=== PATIENT | male | born 1960 | race Caucasian/White ===

== ENCOUNTER 2023-10-13 10:06 | Outpatient (AMB) | payer BC, SELFPAY ==
--- NOTE | 2023-10-13 10:13 | AM.OFFWIN_ITS ---
Intake Vital Signs 10/13/23 10:27 Height 6 ft Weight 180 lb BMI 24.4 BP 136/68 Blood Pressure Location Rt brachial Position Sitting Pulse 75 Pulse Source Pulse Oximeter Temp 97.9 F Temp Source Oral Pulse Oximetry (%) 95 Oxygen Delivery Method Room Air Intake Visit Reasons: EP LT ear pain/crackling in both ears Intake Note: Pt is here today for Lt ear pain, started last night. Also pt states he had a cold a couple of wks ago. Allergies No Known Allergies Allergy (Verified 10/13/23 10:13) Do you need a note to return to daycare/school/sports/work: No HPI HPI Comments History of Present Illness Details This is a 62-year-old male with no stated past medical history presenting for evaluation of left ear pain and a crackling sensation his left ear that started last night. Patient denies having any fevers, chills, sore throat or lightheadedness. Patient states that his has been sick with sinusitis. Patient also reports tinnitus that he has had bilaterally for 2 weeks. [facility] Surgical History History of hernia repair Family History Mother No problems noted. Father Hypertension Diabetes Social History Alcohol intake: current Alcohol intake frequency: a few times a week Review of Systems Const All systems reviewed & are unremarkable except as noted in HPI and below Eyes Reports as per HPI ENT Reports otalgia (Left ear), Denies facial pain and Reports tinnitus Resp Reports no additional complaints Physical Exam Vital Signs: Last Vital Signs Temp 97.9 F 10/13/23 10:27 Pulse 75 10/13/23 10:27 BP 136/68 10/13/23 10:27 Pulse Ox 95 10/13/23 10:27 Oxygen Delivery Method Room Air 10/13/23 10:27 BMI result Body Mass Index 24.4 Const General: cooperative, healthy appearing, comfortable, no acute distress, well developed, alert and awake Nutritional Appearance: average body habitus Orientation/consciousness: patient oriented x3 Limitations: no limitations HEENT Head: Yes normal to inspection and Yes normocephalic Ears: hearing grossly normal bilaterally, external ears normal, TM's abnormal bilaterally (L. TM bulging, erythematous, mild fluid level; R. TM bulging, no erythema) and EAC's normal General nose exam: Normal external nose present Face and sinus: Yes normal facial exam and Yes sinuses nontender Mouth: Normal oral and palatal mucosa present Throat: Yes posterior oropharynx normal Eyes General: appearance normal, both eyes and all related structures Neck Lymphatic: no lymphadenopathy noted Neuro General: patient oriented x3 Psych Appearance: grossly normal Mental Status: mental status grossly normal Insight: Good insight present (Psych) Judgement: Good judgement present (Psych) Assessment & Plan Assessment & Plan (1) Left otitis media: Comment: Tinnitus discussed with patient; may consider hearing test for baseline. Code(s): H66.92 - Otitis media, unspecified, left ear Qualifiers: Otitis media type: unspecified Qualified Code(s): H66.92 - Otitis me jhonny, unspecified, left ear Plan: Amoxicillin t.i.d. x7 days. Ibuprofen or Tylenol as needed. Medications: New amoxicillin 500 mg PO TID 21 caps 0RF Coding Level of Care Code Est Pt Level 3 (93700) Diagnoses Left otitis media, unspecified otitis media type H66.92 Otitis media type: unspecified Time Spent (min) 20
[2023-10-13 10:27] VITALS: BP 136/68; PULSE 75; TEMP 36.6; O2SAT 95; BMI 24.4
== END 2023-10-13 10:55 | disposition home or self-care (01) ==
PROVIDERS: PCP Internal Medicine; Visit Provider Physician Assistant
DX: H66.92 Otitis media, unspecified, left ear (principal)
CPT/HCPCS: 99213

== ENCOUNTER 2024-03-26 15:15 | Outpatient (AMB) | payer BC, SELFPAY ==
--- NOTE | 2024-03-26 15:16 | MHC.OFFWIV ---
Intake Vital Signs 03/26/24 15:17 Height 6 ft Weight 178 lb BMI 24.1 BP 120/74 Blood Pressure Location Lt brachial Position Sitting Pulse 67 Pulse Source Pulse Oximeter Temp 98.5 F Temp Source Oral Pulse Oximetry (%) 98 Oxygen Delivery Method Room Air Intake Visit Reasons: EP- Sinuses are blocked, pressure Intake Note: pt c/o sinus congestion and pressure. Started 3 weeks ago. Ongoing Patient Tobacco Use Status: Never used Tobacco Allergies No Known Allergies Allergy (Verified 03/26/24 15:17) Do you need a note to return to daycare/school/sports/work: No HPI EP- Sinuses are blocked, pressure HPI Details This note is constructed using voice recognition software. While every effort has been made to ensure accuracy, geology teacher errors may have been included. The patient is a 63 year old male who presents to the clinic today with three-week history of sinus congestion pressure. He notes he was recently treated with antibiotics after a dental infection with amoxicillin, and was hoping that this would help his symptoms, however it did not. He has had no fever, chills. He did have a dry cough at some point. The pressure is primarily in the frontal portion of his head and feels masklike, traveling down into the maxillary bilaterally, and into his teeth. He has tried [id number] measures to help alleviate the symptoms, however they do not appear to work. He is concerned that he may have a sinus infection, he has had some in the past and this does feel similar to him. His symptoms do worsen if he puts his head forward. [facility] Surgical History History of hernia repair Family History Mother No problems noted. Father Hypertension Diabetes Social History Alcohol intake: current Alcohol intake frequency: a few times a week Patient Tobacco Use Status: Never used Tobacco Review of Systems Const All systems reviewed & are unremarkable except as noted in HPI and below Physical Exam Vital Signs: Last Vital Signs Temp 98.5 F 03/26/24 15:17 Pulse 67 03/26/24 15:17 BP 120/74 03/26/24 15:17 Pulse Ox 98 03/26/24 15:17 Oxygen Delivery Method Room Air 03/26/24 15:17 BMI result Body Mass Index 24.1 Const General: cooperative, healthy appearing, comfortable and no acute distress Orientation/consciousness: patient oriented x3 Limitations: no limitations HEENT Head: Yes normal to inspection Ears: hearing grossly normal bilaterally, external ears normal and TM's normal bilaterally General nose exam: Normal external nose present, Normal nares present and No nasal discharge present Face and sinus: Yes normal facial exam and Yes sinus tenderness (Maxillary and frontal bilaterally.) Mouth: Normal oral and palatal mucosa present and moist mucous membranes Throat: Yes tonsils normal, Yes uvula midline, Yes posterior oropharynx abnormal (Erythema), Yes postnasal drainage and Yes cobblestoning Eyes General: appearance normal, both eyes and all related structures Neck Neck: Yes normal visual inspection Resp Effort & Inspection: normal respiratory effort, able to speak in complete sentences, Actively coughing, no respiratory distress, not tachypneic, no tripod positioning and no use of accessory muscles Auscultation: clear to auscultation bilaterally Cardio Rate: regular rate Rhythm: regular rhythm Heart sounds: normal S1 and S2 Skin General skin exam: no rashes or lesions noted Neuro General: patient oriented x3 Extrem General: Yes normal to inspection and Yes no clubbing, cyanosis or edema Assessment & Plan Assessment & Plan (1) Sinusitis: Code(s): J32.9 - Chronic sinusitis, unspecified Qualifiers: Sinusitis location: unspecified location Chronicity: acute Recurrence: non-recurrent Qualified Code(s): J01.90 - Acute sinusitis, unspecified Plan: Antimicrobial therapy initiated for treatment of likely ABRS. Given that he has recently been treated with antibiotics, alternate treatment initiated. Advised patient to follow up with PCP with ongoing symptoms or failure to resolve as he may benefit from a referral to ENT that time. Plan See above for full details and plan. Medications: New cefpodoxime must administer with a meal/food 200 mg PO BID 5 days 10 tabs 0RF Coding Level of Care Code Est Pt Level 3 (81728) Diagnoses Acute non-recurrent sinusitis, unspecified location J01.90 Sinusitis location: unspecified location Chronicity: acute Recurrence: non-recurrent
[2024-03-26 15:17] VITALS: BP 120/74; PULSE 67; TEMP 36.9; O2SAT 98; BMI 24.1
== END 2024-03-26 15:48 | disposition home or self-care (01) ==
PROVIDERS: PCP Internal Medicine; Visit Provider Registered Nurse
DX: J01.90 Acute sinusitis, unspecified (principal)
CPT/HCPCS: 99213

== ENCOUNTER 2025-07-01 15:26 | Outpatient (AMB) | payer BC, SELFPAY ==
[2025-07-01 15:48] VITALS: BP 122/84; PULSE 81; TEMP 36.7; O2SAT 97; BMI 22.2
--- NOTE | 2025-07-01 15:48 | A.OFFPC_ITS ---
Vital Signs 07/01/25 15:48 Height 6 ft 1 in Weight 168 lb 2 oz BMI 22.2 BP 122/84 Blood Pressure Location Lt brachial Position Sitting Pulse 81 Pulse Source Pulse Oximeter Temp 98.1 F Temp Source Temporal Artery Scan Pulse Oximetry (%) 97 Oxygen Delivery Method Room Air Intake Visit Reasons: establish care Allergies No Known Allergies Allergy (Verified 07/01/25 15:49) Medication List - Last Reconciled 07/01/25 by Meka Hawk MD cefpodoxime 200 mg PO BID 5 days chlorhexidine gluconate 0.12% PO Tobacco use date assessed: 07/01/25 Dental Screening Dental Screen Date: 07/01/25 HPI HPI Comments History of Present Illness Details The patient is a 64-year-old male previously healthy, presenting to [facility] and to obtain a referral to a public accountant, Dr. Dave, for a screening colonoscopy. He does not report any gastrointestinal symptoms. He denies taking any medications. He states he tries to eat healthy from Sunday through Sunday and is cutting back on sugar. He denies any history of smoking. Regarding immunizations, the patient reports receiving the flu vaccine a couple of weeks ago and has had at least two COVID-19 shots. 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 He also believes he has received the pneumonia vaccine. [facility] Surgical History History of hernia repair Family History Mother No problems noted. Father Hypertension Diabetes Social History Alcohol intake: current Alcohol intake frequency: a few times a week Patient Tobacco Use Status: Never used Tobacco Questionnaire PHQ-9 Over the last 2 weeks, how often have you been bothered by any of the following problems? 1. Little interest or pleasure in doing things: not at all 2. Feeling down, depressed, or hopeless: not at all 3. Trouble falling or staying asleep, or sleeping too much: not at all 4. Feeling tired or having little energy: not at all 5. Poor appetite or overeating: not at all 6. Feeling bad about yourself - or that you are a failure or have let yourself or your family down: not at all 7. Trouble concentrating on things, such as reading the newspaper or watching television: not at all 8. Moving or speaking so slowly that other people could have noticed. Or the opposite - being so fidgety or restless that you have been moving around a lot more than usual: not at all 9. Thoughts that you would be better off or of hurting yourself in some way: not at all Total score: 0 Source: Developed by Drs. Jeramy Del Castillo, Snehal Shukla, Orville Michel and colleagues, with an educational leno from [employer]. Thrive Questionnaire Date Thrive assessed: 07/01/25 I am a: Patient What is your living situation today?: I have a steady place to live Within the past 12 months, did the food you bought not last and you didn't have the money to get more?: Never true Within the past 12 months, did you worry whether your food would run out before you got money to buy more?: Never true Do you have trouble paying for medicines?: No Do you have trouble getting transportation to medical appointments?: No Do you have trouble paying your heating and electricity bill?: No Do you have trouble taking care of your child, family member or friend?: No Do you have trouble with day-to-day activities such as bathing, preparing meals, shopping, managing finances, etc.?: No Are you currently unemployed and looking for a job?: No Are you interested in more education?: No Please select the resources that you would like help with: None Currently or been in a relationship where the following occur: No concerns reported THRIVE Score: 0 AUDIT C Alcohol Use Questionnaire (AUDIT-C) 1. How often do you have a drink containing alcohol?: Never 2. How many drinks containing alcohol do you have on a typical day when you are drinking?: 1 or 2 3. How often do you have six or more drinks on one occasion?: Never Total Score: 0 ANAHY-7 AMB Questionnaire ANAHY-7 Date ANAHY - 7 assessed: 07/01/25 Feeling nervous, anxious, or on edge: 0 = Not at all Not being able to stop or control worryin = Not at all Worrying too much about different things: 0 = Not at all Trouble relaxin = Not at all Being so restless that it is hard to sit still: 0 = Not at all Becoming easily annoyed or irritable: 0 = Not at all Feeling afraid as if something awful might happen: 0 = Not at all Total ANAHY-7 score (0-4 normal; 5-9 mild; 10-14 moderate; 15-21 severe): 0 Source: Developed by Drs. Jeramy Del Castillo, Snehal Shukla, Orville Michel and colleagues, with an educational leno from [employer]. Review of Systems Const Details: As per HPI. Physical exam (Primary Care) Vital Signs: Last Vital Signs Temp 98.1 F 07/01/25 15:48 Pulse 81 07/01/25 15:48 BP 122/84 07/01/25 15:48 Pulse Ox 97 07/01/25 15:48 Oxygen Delivery Method Room Air 07/01/25 15:48 BMI result Body Mass Index 22.2 Tobacco/Smoking Status: Tobacco use Status Tobacco use date assessed 07/01/25 07/01/25 15:55 Patient Tobacco Use Status Never used Tobacco 07/01/25 15:55 PHQ-9: PHQ-9 Score PHQ-9: Total score 0 07/01/25 16:04 Thrive Assessment: Date of Thrive Assessment Date Thrive assessed 07/01/25 07/01/25 15:55 Currently or been in a relationship where the following occur: No concerns reported Const Other: Pertinent findings are in BOLD GENERAL APPEARANCE NAD, activity normal for age, well developed/ well nourished, no cyanosis, pallor, or diaphoresis. EYES lids/conjunctiva normal. EARS/NOSE/THROAT Mucous membranes moist, nares normal, lips/teeth normal uvula midline without oral pharyngeal erythema, exudate or swelling TMs normal bilaterally. No lymphangitis/lymphedema. HEAD/NECK normocephalic atraumatic, no facial trauma, neck is supple. RESPIRATORY respiratory effort normal, speaks in full sentences, no tripod position, no accessory muscle use. Lungs clear to auscultation without rhonchi, wheezes, rales CARDIAC Regular rate and rhythm, no edema. ABDOMINAL Soft, ND/NT. No evidence of fluid wave. No pulsatile masses on exam, rebound tenderness, Wyatt sign or pain over Mcburney's point. MUSCLES/EXTREMITIES No abnormal range of motion, no swelling. SKIN Warm, pink and dry. No rashes, dermatoses, petechiae or lesions. NEUROLOGICAL Speech is clear and appropriate. Normal level of consciousness. Gait and coordination are normal. 5/5 strength in all extremities. PSYCH Normal mood and affect. Judgement/competence is appropriate Coding Level of Care Code Est Pt Prev Care 40-64y(77095) Diagnoses Healthcare maintenance Z00.00 Time Spent (min) 30 Assessment & Plan Assessment & Plan (1) Healthcare maintenance: Code(s): Z00.00 - Encounter for general adult medical examination without abnormal findings Category: Medical Plan: CBC, CMP, Lipid panel, A1C, TSH w T4, vit D. Ordered. Shingles 2 doses when >50 yo. Will bring results next visit. COVID: two doses. Completed. Pneumococcal: >50 yo. 18-49 with CKD, lung disease, weakened immune system, Heart disease, DM, cochlear implant. Got it at [facility]. Flu vaccine: Completed at [facility]. Tdap: every 10 years. Will bring results next visit. Colonoscopy: 45-75. Ordered. AAA: 65 -75. NI[address] CT lun - 80. NI. PSA: 50 -70 every two years. Ordered. HIV: Ordered. HCV: Ordered. Plan I have established care with the patient today. I provided a referral to Dr. Michael Dave for a screening colonoscopy as he requested. I ordered routine screening labs, including checks for blood sugar, thyroid function, vitamin levels, prostate enzyme, hepatitis C, and HIV. I explained t hat fasting for approximately 12 hours is preferred for these tests. We reviewed his immunizations, noting he is current on flu and COVID vaccines, and I advised him to obtain his records for tetanus and pneumonia immunizations for our next visit. I recommended a follow-up appointment in six months to review the results. Orders: Orders Hemoglobin A1c Today Z00.00 - Encounter for general adult medical examination without abnormal findings Hepatitis C Antibody Reflex Today Z00.00 - Encounter for general adult medical examination without abnormal findings Lipid Panel Today Z00.00 - Encounter for general adult medical examination wit hout abnormal findings TSH reflex Free T4 Today Z00.00 - Encounter for general adult medical examination without abnormal findings Vitamin D 25-OH Total Today Z00.00 - Encounter for general adult medical examination without abnormal findings Prostate Specific Antigen Today Z00.00 - Encounter for general adult medical examination without abnormal findings Comprehensive Met. Panel Today Z00.00 - Encounter for general adult medical examination without abnormal findings Complete Blood Count no Diff Today Z00.00 - Encounter for general adult medical examination without abnormal findings HIV Ab/Ag Today Z00.00 - Encounter for general adult medical examination without abnormal findings Referrals Open Access Screening Colonoscopy Referral Z12.11 - Encounter for screening for malignant neoplasm of colon, Z12.12 - Encounter for screening for malignant neoplasm of rectum Medications: Discontinued cefpodoxime must administer with a meal/food Discontinued Reason: No Longer Medically Relevant 200 mg PO BID 5 days 10 tabs 0RF
== END 2025-07-01 16:12 | disposition home or self-care (01) ==
LOC: HO.HMCH 15:27
PROVIDERS: PCP Internal Medicine; Visit Provider Internal Medicine
DX: Z00.00 Encounter for general adult medical examination without abnormal findings (principal)